=== PATIENT | female | born 1985 | race African-American/Black ===

== ENCOUNTER 2023-02-28 05:24 | Day surgery (SDC) | payer OTHER ==
[2023-02-25 19:00] VITALS: BMI 34.0
[2023-02-28] MEDS ORDERED: GABAPENTIN 300 MG CAPSULE ONE (06:45)
[2023-02-28] MEDS ORDERED: PHENAZOPYRIDINE HCL 100 MG TABLET (FP) ONE (06:46)
[2023-02-28] MEDS ORDERED: GABAPENTIN 300 MG CAPSULE PO ONE ×2 (06:50→07:00)
[2023-02-28] MEDS ORDERED: PHENAZOPYRIDINE HCL 100 MG TABLET (FP) PO ONE ×2 (06:50→07:00)
[2023-02-28] MEDS ORDERED: cefOXitin SODIUM 2 GM VIAL (RESTRICTED TO ID) IVPB ONE (07:00)
[2023-02-28] MEDS ORDERED: ACETAMINOPHEN 1000 MG/100 ML BAG IVPB ONE (07:00)
[2023-02-28] MEDS ORDERED: SCOPOLAMINE HYDROBROMIDE 1 PATCH PATCH.TD72 TD ONE (07:00)
[2023-02-28] MEDS ORDERED: LIDOCAINE HCL/PF 2% SDV 5ML VIAL ONE (07:07)
[2023-02-28] MEDS ORDERED: SUCCINYLCHOLINE CHLORIDE 200 MG/10 ML SYRINGE ONE (07:07)
[2023-02-28] MEDS ORDERED: ROCURONIUM BROMIDE 50 MG/5 ML SYRINGE ONE (07:07)
[2023-02-28] MEDS ORDERED: PROPOFOL 20 ML ONE (07:07)
[2023-02-28] MEDS ORDERED: MIDAZOLAM HCL 2 MG/2 ML SINGLE DOSE VIAL ONE ×2 (07:08→07:35)
[2023-02-28] MEDS ORDERED: HEPARIN NA (PORCINE) 5,000 UNITS/ML 1ML VIAL ONE (07:30)
[2023-02-28] MEDS ORDERED: BUPIVACAINE HCL/PF 0.25% (2.5MG/ML) 10 ML VIAL ONE (07:34)
[2023-02-28] MEDS ORDERED: BUPIVACAINE LIPOSOME/PF (EXPAREL) 266 MG/20 ML VIAL ONE (07:34)
[2023-02-28] MEDS ORDERED: DEXAMETHASONE SOD PHOSPHATE 4 MG/1 ML VIAL ONE (08:18)
[2023-02-28] MEDS ORDERED: ceFAZolin SODIUM 1 GM VIAL ONE (08:18)
[2023-02-28] MEDS ORDERED: ceFAZolin SODIUM 1 GM VIAL IVPB ONE (08:20)
[2023-02-28] MEDS ORDERED: TRANEXAMIC ACID 1000 MG/10 ML VIAL ONE (08:22)
[2023-02-28] MEDS ORDERED: TRANEXAMIC ACID 1000 MG/10 ML VIAL IVPUSH ONE (08:25)
[2023-02-28] MEDS ORDERED: GLYCOPYRROLATE 0.2 MG/1 ML VIAL ONE (10:04)
[2023-02-28] MEDS ORDERED: NEOSTIGMINE METHYLSULFATE 0.5 MG/1 ML - 10 ML MDV ONE (10:04)
[2023-02-28] MEDS ORDERED: KETOROLAC TROMETHAMINE 30 MG/1 ML VIAL ONE (10:06)
[2023-02-28] MEDS ORDERED: IBUPROFEN 800 MG/8 ML IJ IVPB PRN (10:49)
[2023-02-28] MEDS ORDERED: DOCUSATE SODIUM 100 MG CAPSULE (FP) PO PRN (10:49)
[2023-02-28] MEDS ORDERED: oxyCODONE HCL 5 MG TABLET PO PRN (10:49)
[2023-02-28] MEDS ORDERED: BISACODYL 5 MG TABLET.DR (FP) PO PRN (10:49)
[2023-02-28] MEDS ORDERED: ONDANSETRON 4 MG/2 ML VIAL IVPUSH PRN (10:49)
[2023-02-28] MEDS ORDERED: LACTATED RINGERS SOLUTION 1,000 ML IV SCH (13:15)
[2023-02-28] MEDS: LACTATED RINGERS SOLUTION 1,000 ML/1,000 ML INFUS.BAG IV SCH (15:21)
[2023-02-28] MEDS: CEFAZOLIN 1 GM in DEXTROSE 5%-WATER - 50 ML IVPB SCH (16:51)
[2023-02-28] MEDS: ACETAMINOPHEN 1000 MG/100 ML BAG IVPB SCH ×2 (16:52→22:19)
[2023-02-28 21:51] LABS: HEMATOCRIT 27.2 % (32.4-45.2); HEMOGLOBIN 8.4 GM/dL (10.7-15.3); MCH 24.2 pg (25.7-33.7); MCHC 30.9 g/dl (32.0-36.0); MEAN CELL VOLUME 78.2 fl (80-96); MEAN PLT VOLUME 8.8 fl (7.5-11.1); PLATELET COUNT 367 10^3/uL (134-434); RBC 3.48 M/mm3 (3.60-5.2); RDW 16.1 % (11.6-15.6); WHITE BLOOD COUNT 9.9 K/mm3 (4.0-10.0)
[2023-02-28 22:28] LABS: POTASSIUM 4.8 mmol/L (3.5-5.1)
[2023-02-28 22:31] LABS: BLOOD UREA NITROGEN 8.4 mg/dL (7-18); CALCIUM 8.9 mg/dL (8.5-10.1)
[2023-02-28 22:34] LABS: CREATININE 1.1 mg/dL (0.55-1.3)
[2023-02-28 23:19] VITALS: RESP 18
[2023-03-01] MEDS: LACTATED RINGERS SOLUTION 1,000 ML/1,000 ML INFUS.BAG IV SCH ×2 (01:21→14:30)
[2023-03-01] MEDS: CEFAZOLIN 1 GM in DEXTROSE 5%-WATER - 50 ML IVPB SCH ×2 (01:21→09:45)
[2023-03-01] MEDS: ACETAMINOPHEN 1000 MG/100 ML BAG IVPB SCH ×2 (04:20→09:45)
[2023-03-01 07:40] LABS: HEMATOCRIT 25.1 % (32.4-45.2); HEMOGLOBIN 7.9 GM/dL (10.7-15.3); MCH 24.3 pg (25.7-33.7); MCHC 31.5 g/dl (32.0-36.0); MEAN CELL VOLUME 77.2 fl (80-96); MEAN PLT VOLUME 8.8 fl (7.5-11.1); PLATELET COUNT 331 10^3/uL (134-434); RBC 3.25 M/mm3 (3.60-5.2); RDW 16.1 % (11.6-15.6); WHITE BLOOD COUNT 9.3 K/mm3 (4.0-10.0)
[2023-03-01 07:54] LABS: POTASSIUM 4.2 mmol/L (3.5-5.1)
[2023-03-01 07:57] LABS: BLOOD UREA NITROGEN 7.7 mg/dL (7-18); CALCIUM 8.6 mg/dL (8.5-10.1)
[2023-03-01] MEDS: ENOXAPARIN NA (PORCINE) 40 MG/0.4 ML DISP.SYRIN SQ SCH (09:45)
[2023-03-01] MEDS ORDERED: IRON SUCROSE INJECTION 200 MG in SODIUM CHLORIDE 90 ML IVPB ONE (10:45)
[2023-03-01] MEDS: oxyCODONE HCL 5 MG TABLET PO PRN ×3 (12:58→20:38)
[2023-03-01] MEDS: SIMETHICONE 80 MG TAB.CHEW (FP) PO PRN ×3 (12:58→20:38)
[2023-03-01] MEDS ORDERED: ACETAMINOPHEN 500 MG TABLET (FP) PO PRN (14:33)
[2023-03-02] MEDS: IBUPROFEN 600 MG TABLET (FP) PO PRN ×2 (00:51→09:15)
[2023-03-02] MEDS: SIMETHICONE 80 MG TAB.CHEW (FP) PO PRN ×2 (00:52→09:15)
[2023-03-02 07:22] LABS: BASO % 0.3 % (0-2.0); EOS % 0.5 % (0-4.5); HEMATOCRIT 27.2 % (32.4-45.2); HEMOGLOBIN 8.5 GM/dL (10.7-15.3); LYMPH % 22.4 % (8-40); MCH 24.2 pg (25.7-33.7); MCHC 31.2 g/dl (32.0-36.0); MEAN CELL VOLUME 77.7 fl (80-96); MEAN PLT VOLUME 8.8 fl (7.5-11.1); MONO % 8.4 % (3.8-10.2); NEUT % 68.4 % (42.8-82.8); PLATELET COUNT 388 10^3/uL (134-434); RBC 3.51 M/mm3 (3.60-5.2); RDW 16.5 % (11.6-15.6); WHITE BLOOD COUNT 12.2 K/mm3 (4.0-10.0)
[2023-03-02] MEDS: ENOXAPARIN NA (PORCINE) 40 MG/0.4 ML DISP.SYRIN SQ SCH (09:19)
[2023-03-02 17:19] VITALS: BP 108/64; PULSE 74; TEMP 98.7
== END 2023-03-02 15:25 | disposition home or self-care (01) ==
LOC: JASUSAT 05:24 → J3W 16:28 → JASUSAT 03-02 15:25
PROVIDERS: ATTEND Obstetrics & Gynecology
PROC: 0UB10ZZ Excision of Left Ovary, Open Approach (ICD-10-PCS; 2023-02-28)
PROC: 0UB90ZZ Excision of Uterus, Open Approach (ICD-10-PCS; principal; 2023-02-28 07:30)
DX: D25.9 Leiomyoma of uterus, unspecified (principal); N80.03 Adenomyosis of the uterus; N83.292 Other ovarian cyst, left side
CPT/HCPCS: 36415; 80048; 81025; 85025; 85027; 86900; 88305-TC; 94760; J1644; J1756

== ENCOUNTER 2023-03-28 01:15 | Emergency (ER) | payer OTHER ==
[2023-03-28 01:28] VITALS: RESP 18; TEMP 99.2; BMI 34.9
[2023-03-28] MEDS ORDERED: ACETAMINOPHEN 1000 MG/100 ML BAG IVPB ONE (02:05)
[2023-03-28] MEDS ORDERED: SODIUM CHLORIDE 0.9% 500 ML INFUS.BAG IV ONE (02:05)
[2023-03-28 02:32] LABS: HCG,QUALITATIVE URINE Negative
[2023-03-28 02:39] LABS: EPI CELLS 7 /uL (0-25.1); HYALINE CASTS 0 /uL (0-3.1); URINE APPEARANCE TURBID; URINE BILIRUBIN 2+ (NEGATIVE); URINE COLOR RED; URINE GLUCOSE (UA) NEGATIVE (NEGATIVE); URINE KETONE Error (NEGATIVE); URINE LEUK ESTERASE 3+ (NEGATIVE); URINE NITRITE POSITIVE (NEGATIVE); URINE PROTEIN 2+ (NEGATIVE); URINE RBC 17 /uL (0-23.9); URINE UROBILINOGEN 0.2 mg/dL (0.2-1.0); URINE WBC 0 /uL (0-25.8)
[2023-03-28 03:20] LABS: BASO % 0.7 % (0-2.0); EOS % 1.1 % (0-4.5); HEMATOCRIT 29.5 % (32.4-45.2); HEMOGLOBIN 9.5 GM/dL (10.7-15.3); LYMPH % 13.5 % (8-40); MCH 24.4 pg (25.7-33.7); MEAN CELL VOLUME 76.1 fl (80-96); MEAN PLT VOLUME 8.3 fl (7.5-11.1); MONO % 7.2 % (3.8-10.2); NEUT % 77.5 % (42.8-82.8); PLATELET COUNT 334 10^3/uL (134-434); RBC 3.88 M/mm3 (3.60-5.2); RDW 18.5 % (11.6-15.6); WHITE BLOOD COUNT 10.9 K/mm3 (4.0-10.0)
[2023-03-28 03:39] LABS: POTASSIUM 4.1 mmol/L (3.5-5.1)
[2023-03-28 03:41] LABS: CALCIUM 9.1 mg/dL (8.5-10.1)
[2023-03-28 03:42] LABS: ALBUMIN 3.4 g/dl (3.4-5.0); BLOOD UREA NITROGEN 4.8 mg/dL (7-18)
[2023-03-28 03:45] LABS: CREATININE 1.1 mg/dL (0.55-1.3)
[2023-03-28 03:47] LABS: BILIRUBIN,TOTAL 0.3 mg/dL (0.2-1); TOT PROT 7.7 g/dl (6.4-8.2)
[2023-03-28] MEDS ORDERED: CEFTRIAXONE 1,000 MG in DEXTROSE 5%-WATER - 50 ML IVPB ONE (05:08)
[2023-03-28] MEDS ORDERED: CEFTRIAXONE 1 GM/50 ML BAG ONE (05:09)
[2023-03-28] MEDS ORDERED: KETOROLAC TROMETHAMINE 15 MG/ML VIAL IVPUSH ONE (05:36)
[2023-03-28] MEDS ORDERED: KETOROLAC TROMETHAMINE 15 MG/ML VIAL ONE (05:37)
[2023-03-28 06:00] VITALS: BP 125/89; PULSE 73
== END 2023-03-28 06:36 | disposition home or self-care (01) ==
LOC: JER 01:15
PROC: 3E03329 Introduction of Other Anti-infective into Peripheral Vein, Percutaneous Approach (ICD-10-PCS; principal; 2023-03-28)
PROC: 3E033NZ Introduction of Analgesics, Hypnotics, Sedatives into Peripheral Vein, Percutaneous Approach (ICD-10-PCS; 2023-03-28)
PROC: 3E0333Z Introduction of Anti-inflammatory into Peripheral Vein, Percutaneous Approach (ICD-10-PCS; 2023-03-28)
DX: R10.30 Lower abdominal pain, unspecified (principal); R11.0 Nausea; D25.9 Leiomyoma of uterus, unspecified; N39.0 Urinary tract infection, site not specified
CPT/HCPCS: 36415; 76830-TC; 80053; 81003; 84703; 85025; 87086; 99284-25